=== PATIENT | female | born 1950 | race Two or more races ===

== ENCOUNTER → 2023-12-17 | Outpatient (CLI) | payer OTHER ==
[2023-12-17 10:30] LABS: Basophils # (auto) 0.1 10 ^3/uL (0-0.2); Basophils % (auto) 0.7 % (0.0-2.0); Eosinophils # (auto) 0.3 10 ^3/uL (0-0.8); Eosinophils % (auto) 2.6 % (0.0-7.0); Hemoglobin 14.1 g/dL (12.2-16.2); Lymphocytes # (auto) 1.7 10 ^3/uL (0.4-5.4); Lymphocytes % (auto) 16.8 % (10.0-50.0); Mean Corpuscular Hemoglobin 32.6 pg (28.0-32.0); Mean Corpuscular Hgb Conc. 34.3 g/dL (32.0-36.0); Mean Corpuscular Volume 95.1 fL (80.0-100.0); Monocytes # (auto) 0.6 10 ^3/uL (0-1.3); Monocytes % (auto) 6.2 % (0.0-12.0); Neutrophils # (auto) 7.4 10 ^3/uL (1.6-8.6); Neutrophils % (auto) 73.7 % (37.0-80.0); Nucleated Red Blood Cells % 0.1 %; Red Blood Cells 4.31 10^6/uL (4.0-5.20); Red Cell Distribution Width 13.3 % (11.8-14.3)
[2023-12-17 11:13] LABS: Alanine Aminotransferase 10 U/L (7-40); Albumin 4.5 g/dL (3.2-4.8); Alkaline Phosphatase 185 U/L (46-116); Anion Gap 5 (5-15); Aspartate Aminotransferase < 8 U/L (13-40); BUN/Creatinine Ratio 14.6 (10.0-20.0); Blood Urea Nitrogen 12 mg/dL (9-23); Calcium 9.6 mg/dL (8.7-10.4); Carbon Dioxide 28 mmol/L (20-30); Chloride 107 mmol/L (98-107); Glucose 118 mg/dL (74-106); LDL Cholesterol 140 mg/dL (< 100); Potassium 4.3 mmol/L (3.5-5.1); Sodium 140 mmol/L (136-145); Triglycerides 131 mg/dL (< 150)
[2023-12-17 11:14] LABS: Bilirubin, Total 0.4 mg/dL (0.2-1.0); Cholesterol 206 mg/dL (< 200); HDL Cholesterol 36 mg/dL (40-59); Total Protein 7.3 g/dL (5.7-8.2)
== END | disposition home or self-care (01) ==
LOC: LAB 10:06
PROVIDERS: ATTEND Specialist
DX: I10 Essential (primary) hypertension (principal); E78.5 Hyperlipidemia, unspecified
CPT/HCPCS: 36415; 80053; 80061; 85025